=== PATIENT | female | born 1965 | race Caucasian/White ===

== ENCOUNTER → 2017-04-09 | Outpatient (CLI) | payer OTHER ==
--- NOTE | 2017-04-09 12:38 | Diagnostic Imaging Report ---
EXAMINATION: Upper and lower extremity pressure measurements of ankle/brachial index and pulse volume recording at the ankle. INDICATION: Claudication FINDINGS: The ankle/brachial index on the right side is 1.1, (1.1 DP, and 1.0 PT) and on the left is 1.1 (0.9 DP, and 1.1 PT). Pulse volume recording waveforms no significant dampening of the waveforms. Blood pressure measurements in the right upper extremity systolic is 194 and on the left side is 202. IMPRESSION: Normal CONG, bilaterally. The patient however has elevated blood pressure in the range of 200 systolic measurements. Report was called and faxed to KALLI Knight, @ 12:35 PM/jade. Dictated by: Dictated on workstation # [id number]
== END ==
LOC: RAD 11:00
PROVIDERS: ATTEND Nurse Practitioner Family
DX: I10 Essential (primary) hypertension (principal); M79.604 Pain in right leg; R60.9 Edema, unspecified
CPT/HCPCS: 93922

== ENCOUNTER → 2017-07-05 | Outpatient (CLI) | payer OTHER ==
[~2017-07-05] MED LIST: REGADENOSON 0.4 MG/5 ML SYR (LEXISCAN) IV ONE
[2017-07-05] MEDS: CATHETER FLUSH 10 ML SYR IV PRN ×2 (08:00→09:05)
[2017-07-05 09:02] VITALS: BP 148/99
--- NOTE | 2017-07-07 09:56 | STRESS TEST ---
DATE OF SERVICE: 07/05/2017 RESTING AND POST REGADENOSON TECHNETIUM-[address] IMAGING: ORDERING PHYSICIAN: Aziza Thomson APRN OTHER PHYSICIAN: Leanne Gomes APRN CLINICAL DIAGNOSIS: Shortness of breath. Baseline images were carried out after injection of 10.4 mCi technetium-99 Tetrofosmin. This was followed by 0.4 mg regadenoson and 30 mCi of technetium-99 Tetrofosmin for stress imaging. The electrocardiogram showed sinus rhythm at baseline and did not change significantly with the regadenoson infusion. The patient tolerated the procedure well. Review of images at rest following stress reveals somewhat diminished count uptake in the anterolateral wall both at rest and following regadenoson infusion. This appears to be breast attenuation seen both at rest and following regadenoson infusion. Gated images show normal global systolic function with normal regional wall motion, including the anterior wall. Left ventricular ejection fraction is calculated to be 68%. Left ventricular end diastolic volume is 66 mL. TID is absent (1.09). CONCLUSIONS: 1. No evidence of significant myocardial ischemia or infarction on this study. 2. Normal regional wall motion. 3. Normal global left ventricular systolic function with a calculated ejection fraction of 68%. 4. Normal left ventricular cavity size. 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
== END ==
LOC: CARD 07:29
PROVIDERS: ATTEND Nurse Practitioner Family
DX: R06.09 Other forms of dyspnea (principal); I10 Essential (primary) hypertension
CPT/HCPCS: 78452; 93017